=== PATIENT | female | born 1980 | race Caucasian/White ===

== ENCOUNTER 2024-06-03 08:48 | Emergency (ER) | payer MEDICAID ==
[2024-06-03] MEDS ORDERED: Sodium Chloride 0.9% 10 ML Syringe FLUSH PRN (08:52)
[2024-06-03] MEDS ORDERED: Sodium Chloride 0.9% 2.5 ML Syringe FLUSH PRN (08:52)
[2024-06-03] MEDS: Ketorolac 30 MG/ML SDV IVPUSH ONE (09:11)
[2024-06-03] MEDS: Ondansetron 4 MG/2 ML SDV IVPUSH ONE (09:11)
[2024-06-03] MEDS: Sodium Chloride 0.9% 1,000 ML IV ONE (09:12)
[2024-06-03 09:21] LABS: BASOPHILS ABSOLUTE AUTO 0.06 K/uL (0.00-0.20); BASOPHILS PERCENT AUTO 0.5 % (0.0-1.0); EOSINOPHILS ABSOLUTE AUTO 0.11 K/uL (0.00-0.45); HEMATOCRIT 41.9 % (37.0-47.0); HEMOGLOBIN 14.3 g/dL (12.0-16.0); IMMATURE GRAN ABSOLUTE AUTO 0.03 K/uL (0.00-0.05); IMMATURE GRAN PERCENT AUTO 0.3 % (0.0-0.4); LYMPHOCYTES ABSOLUTE AUTO 1.77 K/uL (1.00-4.80); LYMPHOCYTES PERCENT AUTO 15.6 % (24.0-44.0); MEAN CORPUSCULAR HEMOGLOBIN 28.2 pg (28.0-32.0); MEAN CORPUSCULAR HGB CONC 34.1 g/dL (32.0-36.0); MEAN CORPUSCULAR VOLUME 82.6 fL (83.0-99.0); MEAN PLATELET VOLUME 10.4 fL (9.4-12.3); MONOCYTES ABSOLUTE AUTO 0.52 K/uL (0.00-0.80); MONOCYTES PERCENT AUTO 4.6 % (0.0-8.0); NEUTROPHILS ABSOLUTE AUTO 8.84 K/uL (1.80-7.70); PLATELET COUNT,PLT 278 K/uL (150-400); RED BLOOD CELL COUNT 5.07 M/uL (4.10-5.30); WHITE BLOOD CELL COUNT,WBC 11.33 K/uL (3.9-11.3)
[2024-06-03] MEDS ORDERED: Morphine 4 MG/ML Syringe IVPUSH PRN (09:22)
[2024-06-03] MEDS ORDERED: Naloxone 0.4 MG/ML SDV IVPUSH PRN (09:22)
[2024-06-03 09:44] LABS: A/G RATIO 0.9 (0.9-1.6); ALBUMIN 3.4 g/dL (3.4-5.0); BILIRUBIN TOTAL 0.4 mg/dL (0.2-1.0); CREATININE 1.2 mg/dL (0.6-1.0); EST CRCL DRUG DOSING (CG) 47.32 mL/min; POTASSIUM,K 4.4 mmol/L (3.5-5.1)
[2024-06-03 10:50] LABS: APPEARANCE,URINE SLT CLOUDY; BILIRUBIN,URINE NEGATIVE (NEGATIVE); COLOR,URINE YELLOW; GLUCOSE,URINE NEGATIVE (NEGATIVE); KETONES,URINE NEGATIVE (NEGATIVE); LEUKOCYTE ESTERASE,URINE NEGATIVE (NEGATIVE); NITRITE,URINE NEGATIVE (NEGATIVE); OCCULT BLOOD,URINE LARGE (NEGATIVE); PROTEIN,URINE NEGATIVE (NEGATIVE); UROBILINOGEN,URINE 0.2 EU/dL (<2.0)
[2024-06-03 11:15] LABS: RBC,URINE 25-35 (0-2/HPF)
[2024-06-03 11:16] LABS: BACTERIA,URINE RARE (NEGATIVE); EPITHELIAL CELLS,URINE RARE (NONE-FEW)
== END 2024-06-03 12:45 | disposition home or self-care (01) ==
LOC: MW.ED 08:48
DX: N13.2 Hydronephrosis with renal and ureteral calculous obstruction (principal); Z75.8 Other problems related to medical facilities and other health care; Z90.49 Acquired absence of other specified parts of digestive tract; Z90.710 Acquired absence of both cervix and uterus
CPT/HCPCS: 36415; 74176; 80053; 81001; 83690; 85025; 96361; 96374; 96375; 99284; J1885; J2405; J7030